=== PATIENT | female | born 1960 | race Caucasian/White ===

== ENCOUNTER 2020-07-03 13:32 | Outpatient (CLI) | payer MEDICARE | END 2020-07-03 13:33 | disposition home or self-care (01) | LOC: CSHRAD 13:32 | PROVIDERS: ATTEND Internal Medicine Rheumatology | DX: M54.5 Low back pain (principal); M47.816 Spondylosis without myelopathy or radiculopathy, lumbar region | CPT/HCPCS: 72100 ==